=== PATIENT | female | born 1955 | race Asian ===

== ENCOUNTER 2022-11-02 22:25 | Emergency (ER) | payer MEDICAID ==
[2022-11-02 22:32] VITALS: BP_SYST 160
[2022-11-02 23:01] LABS: BASOPHILS % (AUTO) 0.3 % (0.0-2.0); EOSINOPHILS # (AUTO) 0.1 K/uL (0.0-0.4); EOSINOPHILS % (AUTO) 1.3 % (0.0-4.0); HEMATOCRIT 39.8 % (36-48); HEMOGLOBIN 13.2 g/dL (12.0-16.0); LYMPHOCYTES # (AUTO) 1.7 K/uL (1.0-5.5); MEAN CORPUSCULAR HEMOGLOBIN 33 pg (27-31); MEAN CORPUSCULAR HGB CONC 33 % (32-36); MEAN CORPUSCULAR VOLUME 100 fL (79.0-98.0); MONOCYTES # (AUTO) 0.5 K/uL (0.0-1.0); MONOCYTES % (AUTO) 8.3 % (1.7-9.3); NEUTROPHILS # (AUTO) 4.2 K/uL (1.8-7.7); NEUTROPHILS % (AUTO) 64.1 % (40.0-70.0); PLATELET COUNT (AUTO) 236 K/uL (130-430); RED BLOOD CELL COUNT(AUTO) 3.98 MIL/uL (4.2-6.2); RED CELL DISTRIBUTION WIDTH 12.9 % (9.0-15.0); WHITE BLOOD COUNT (AUTO) 6.5 K/uL (4.8-10.8)
[2022-11-02 23:28] LABS: ANION GAP 6 (5-15); CALCIUM 8.6 mg/dL (8.4-11.0); CHLORIDE 102 mmol/L (98-107); CREATININE 0.96 mg/dL (0.55-1.30); GFR AFRICAN AMERICAN 75 mL/min (>90); GLUCOSE 117 mg/dL (70-99); UREA NITROGEN, BLOOD 19 mg/dL (8-21)
[2022-11-02] MEDS ORDERED: MORPHINE 4 MG INJ. 4 MG/ML VIAL IVP ONE (23:30)
[2022-11-02] MEDS ORDERED: LIDOCAINE PATCH 5% 1 EA TP ONE (23:30)
[2022-11-02] MEDS ORDERED: ASPIRIN 325 MG TABLET PO ONE (23:30)
[2022-11-02 23:35] LABS: ALANINE AMINOTRANSFERASE 21 U/L (12-78); ALBUMIN 3.9 g/dL (3.4-4.8); ASPARTATE AMINOTRANSFERASE 20 U/L (10-37); TOTAL BILIRUBIN 0.3 mg/dL (0.0-1.0)
[2022-11-03] MEDS ORDERED: LIDO1ADH77 TD (01:00)
[2022-11-03] MEDS ORDERED: IBUP-1969 PO (01:00)
[2022-11-03 01:18] VITALS: BP_SYST 155
== END 2022-11-03 01:18 | disposition home or self-care (01) ==
LOC: SED 22:25
DX: S29.011A Strain of muscle and tendon of front wall of thorax, initial encounter (principal); I10 Essential (primary) hypertension; M25.512 Pain in left shoulder; Z79.899 Other long term (current) drug therapy; X58.XXXA Exposure to other specified factors, initial encounter; Y93.89 Activity, other specified; Y92.89 Other specified places as the place of occurrence of the external cause; Y99.8 Other external cause status
CPT/HCPCS: 99285; 71046; 80053; 83880; 85025; 84484; 36415; 93005; 96374; J2270